=== PATIENT | female | born 2000 | race African-American/Black ===

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

== ENCOUNTER 2021-06-03 22:25 | Inpatient (IN) | payer MEDICAID ==
[~2021-06-03] VITALS: Ht 167.6 cm; Wt 76.2 kg
[2021-06-03] MEDS ORDERED: WITCH HAZEL-GLYCERIN PAD TOP PRN (23:30)
[2021-06-03] MEDS ORDERED: LIDOCAINE 2%HCL (LOCAL ANESTH.) INJ 20ML MDV IJ PRN (23:30)
[2021-06-03] MEDS ORDERED: BUTORPHANOL TARTRATE 2 MG/1 ML VIAL IV PRN ×2 (23:30)
[2021-06-03] MEDS ORDERED: PROMETHAZINE HCL 25 MG/ML 1ML IV PRN (23:30)
[2021-06-03] MEDS ORDERED: PHISODERM TOP SOLN 240ML BTL TOP PRN (23:30)
[2021-06-03] MEDS ORDERED: LACTATED RINGER'S 1,000 ML IV SCH (23:30)
[2021-06-03] MEDS ORDERED: DERMOPLAST 60ML BOTTLE TOP PRN (23:30)
[2021-06-03] MEDS ORDERED: PENICILLIN G POT 5MIL/D5 50ML 50 ML IV ONE (23:30)
[2021-06-04 00:24] LABS: Basophils # (auto) 0.1 10 ^3/uL (0-0.2); Basophils % (auto) 0.7 % (0.0-2.0); Eosinophils # (auto) 0.4 10 ^3/uL (0-0.8); Eosinophils % (auto) 2.9 % (0.0-7.0); Hematocrit 35.3 % (36.0-46.0); Hemoglobin 11.7 g/dL (12.2-16.2); Lymphocytes % (auto) 14.1 % (10.0-50.0); Mean Corpuscular Hemoglobin 28.5 pg (28.0-32.0); Mean Corpuscular Hgb Conc. 33.1 g/dL (32.0-36.0); Mean Corpuscular Volume 86.2 fL (80.0-100.0); Monocytes % (auto) 7.4 % (0.0-12.0); Neutrophils # (auto) 10.5 10 ^3/uL (1.6-8.6); Neutrophils % (auto) 74.9 % (37.0-80.0); Red Cell Distribution Width 14.5 % (11.8-14.3)
[2021-06-04 00:41] LABS: INR 0.94 (0.9-1.15); Partial Thromboplastin Time 24.8 sec (23.6-33.0)
[2021-06-04 00:44] LABS: Albumin 2.9 g/dL (3.4-5.0); Calcium 8.1 mg/dL (8.5-10.1); Potassium 3.5 mmol/L (3.5-5.1)
[2021-06-04 00:47] LABS: BUN/Creatinine Ratio 13.7
[2021-06-04 00:47] LABS: Alcohol, Urine < 3.0 mg/dL (0-10); Amphetamine Screen, Urine NEGATIVE (NEGATIVE); Barbiturate Scree,Urine NEGATIVE (NEGATIVE); Benzodiazephine Screen, Urine NEGATIVE (NEGATIVE); Cannabinoid Screen, Urine NEGATIVE (NEGATIVE); Cocaine Screen, Urine NEGATIVE (NEGATIVE); Opiate Scree,Urine NEGATIVE (NEGATIVE); Phencyclidine Screen, Urine NEGATIVE (NEGATIVE)
[2021-06-04 00:49] LABS: Bilirubin, Total 0.2 mg/dL (0.2-1.0); Total Protein 6.8 g/dL (6.4-8.2)
[2021-06-04 01:07] LABS: Urine Bacteria NONE SEEN /hpf (None Seen); Urine Blood 3+ /uL (Negative); Urine Specific Gravity 1.016 (1.001-1.035); Urine WBC 14 /hpf (0 - 5)
[2021-06-04] MEDS ORDERED: LACT. RINGERS/OXYTOCIN 20UNITS 500 ML IV ONE ×2 (01:30→02:00)
[2021-06-04] MEDS ORDERED: TERBUTALINE SULFATE 1 MG/ML 1ML VIAL SC ONE (01:30)
[2021-06-04] MEDS ORDERED: LACT. RINGERS/OXYTOCIN 20UNITS 1,000 ML IV SCH (01:30)
[2021-06-04] MEDS ORDERED: PENICILLIN G POTASSIUM 2,500,000 UNITS in D5W 5% 50 ML IV SCH (03:30)
[2021-06-04] MEDS ORDERED: PENICILLIN G POT 5MILLION UNIT VIAL ONE (05:05)
[2021-06-04] MEDS ORDERED: STERILE WATER 10 ML ONE (05:06)
[2021-06-04] MEDS: PENICILLIN G POTASSIUM 2,500,000 UNITS in D5W 5% 50 ML IV SCH ×2 (05:25→09:49)
[2021-06-04] MEDS ORDERED: METHYLERGONOVINE MALEATE 0.2 MG/ML AMP IM ONE ×2 (10:33→10:45)
[2021-06-04] MEDS ORDERED: miSOPROStol 100 mcg TAB ONE (10:42)
[2021-06-04] MEDS ORDERED: miSOPROStol 100 mcg TAB PR ONE (10:45)
[2021-06-04] MEDS ORDERED: miSOPROStol 100 mcg TAB SL ONE (10:45)
[2021-06-04] MEDS ORDERED: IBUPROFEN 600 MG TAB PO PRN (12:00)
[2021-06-04] MEDS ORDERED: ACETAMINOPHEN 325 MG TAB PO PRN (12:00)
[2021-06-04 12:15] VITALS: BP 133/73
[2021-06-04 14:00] VITALS: BP 123/68
[2021-06-04 15:30] VITALS: BP 114/59
[2021-06-04 19:00] VITALS: BP 118/69
[2021-06-04 23:00] VITALS: BP 116/72
[2021-06-05 03:00] VITALS: BP 115/70
[2021-06-05 05:07] LABS: Rubella Antibodies, IgG 3.42 index (Immune >0.99)
[2021-06-05 07:00] VITALS: BP 110/65
[2021-06-05 07:07] LABS: RPR Non Reactive (Non Reactive)
[2021-06-05 11:00] VITALS: BP 117/66
== END 2021-06-05 13:25 | disposition home or self-care (01) | DRG 560 ==
LOC: LDRP 22:25 → OBSVTOIN 23:16 → LDRP 23:17
PROVIDERS: ADMIT Obstetrics & Gynecology; ATTEND Obstetrics & Gynecology
PROC: 10E0XZZ Delivery of Products of Conception, External Approach (ICD-10-PCS; principal; 2021-06-04)
PROC: 0KQM0ZZ Repair Perineum Muscle, Open Approach (ICD-10-PCS; 2021-06-04)
DX: O70.1 Second degree perineal laceration during delivery (principal); Z20.822 Contact with and (suspected) exposure to COVID-19; Z3A.37 37 weeks gestation of pregnancy; Z37.0 Single live birth
CPT/HCPCS: 36415; 59025; 59409; 76805; 80053; 80307; 81001; 81002; 82948; 85025; 85610; 85730; 86592; 86703; 86762; 86850; 86900; 86901; 87340; 87426; 94760; 96360; 96361; 96365; 96366; G0378; J2540; J2590; J7060